=== PATIENT | male | born 1995 | race African-American/Black ===

== ENCOUNTER 2021-06-13 00:33 | Emergency (ER) | payer OTHER ==
[~2021-06-13] VITALS: Ht 190.5 cm; Wt 104.0 kg
[2021-06-13] MEDS ORDERED: LIDOCAINE 1%/EPI 1:100,000 20 ML VIAL. INJ ONE (00:45)
[2021-06-13 00:59] VITALS: BP 134/86
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
[2021-06-13] MEDS ORDERED: NEOMY/BACITR/POLYMYXIN OINT PACKET. TP ONE ×2 (02:10→02:15)
[2021-06-13] MEDS ORDERED: DIPH,PERTUSS(ACELL),TET VAC/PF 0.5 ML SYRINGE. VAX IM ONE (02:15)
--- NOTE | 2021-06-13 04:12 | RAD ---
Study: 1. XR HAND_RIGHT 3 VIEWS 2. XR FOREARM_RIGHT 2 VIEWS Indication: Laceration injury. Comparison: None. Findings: Right forearm: Laceration injury best appreciated along the dorsum of the mid to distal forearm. No retained radiopa que foreign body or acute fracture. No malalignment at the elbow. Right hand: It appears as if there is soft tissue injury centered dorsal/ulnar along the hand but this would be b linda assessed clinically. On the oblique view possible punctate retained foreign body dorsal/ulnar t o the fifth metacarpal head/neck junction. On the lateral view, small focus of increased density proj ecting dorsal to the little finger DIP joint. No acute fracture or malalignment. Impression: Right forearm: 1. No acute osseous abnormality. 2. Laceration injury best seen at the dorsal mid to distal forearm. No retained radiopaque foreign amarilys dy. Right hand: 1. No acute osseous abnormality. 2. Soft tissue injury with a suspected small retained foreign body dorsal/ulnar to the fifth metacarp al head/neck junction. There may be an additional retained foreign body dorsal to the little finger D IP joint (see segura images). Electronically signed by: JUAN RODRIGUEZ MD (06/13/2021 4:10 AM) [facility]
== END 2021-06-13 02:22 | disposition home or self-care (01) ==
LOC: ER 00:33
DX: S51.811A Laceration without foreign body of right forearm, initial encounter (principal); W25.XXXA Contact with sharp glass, initial encounter; Y93.89 Activity, other specified; Y92.89 Other specified places as the place of occurrence of the external cause; Y99.8 Other external cause status
CPT/HCPCS: 12005; 73090; 73130; 90471; 90715; 99284